=== PATIENT | male | born 1970 | race Caucasian/White ===

== ENCOUNTER 2016-03-21 07:12 | Emergency (ER) | payer OTHER, SELFPAY ==
[2016-03-21 07:25] LABS: #Neutrophils 4.5 thou/uL (1.40-6.50); %Basophils 0.7 % (0.0-1.0); %Eosinophils 1.4 % (0.0-10.0); %Lymphocytes 29.5 % (21.0-51.0); %Monocytes 9.9 % (0.0-10.0); %Neutrophils 58.5 % (42.0-75.0); Mean Corpuscular HGB CONC 34.7 g/dL (32.0-36.0); Mean Corpuscular Hemoglobin 32.1 pg (27.0-31.0); Mean Corpuscular Volume 92.4 fL (80.0-94.0); Mean Platelet Volume 9.1 fL (7.4-10.4); Platelet Count 235 thou/uL (130-400); RBC Distribution Width 11.3 % (11.5-14.5); Red Blood Cell (RBC) Count 4.98 mill/uL (4.70-6.10); White Blood Cell (WBC) Count 7.8 thou/uL (4.8-10.8)
[2016-03-21 07:26] LABS: #Basophils 0.1 thou/uL (0.0-0.2); #Eosinphils 0.1 thou/uL (0.0-0.7); #Lymphocytes 2.3 thou/uL (1.20-3.40); #Monocytes 0.8 thou/uL (0.11-0.59)
[2016-03-21 07:30] LABS: INR-International Normal Ratio 0.9; PTT 28.2 SEC (22.9-36.1); Prothrombin Time 12.9 SEC (12.0-14.7)
[2016-03-21 07:40] LABS: Albumin 4.5 g/dL (3.5-5.0); Chloride 104 mmol/L (98-107)
[2016-03-21 07:41] LABS: CKMB 4.7 ng/mL (0-6.6); Troponin I Less than 0.010 ng/mL (< 0.028)
[2016-03-21 07:43] LABS: Calcium 9.6 mg/dL (7.8-10.44); Sodium 138 mmol/L (136-145)
[2016-03-21 07:44] LABS: Anion Gap 18 mmol/L (10-20); Carbon Dioxide 21 mmol/L (22-29); Globulin 2.5 g/dL (2.4-3.5); Glucose 94 mg/dL (70-105); Potassium 4.5 mmol/L (3.5-5.1)
[2016-03-21 07:45] LABS: Calc. Creatinine Clearance 0 mL/min (70-130); Estimated GFR-MDRD 75
[2016-03-21 07:46] LABS: Alkaline Phosphatase 65 U/L (40-150); Bilirubin, Total 0.5 mg/dL (0.2-1.2)
[2016-03-21 07:47] LABS: AST (SGOT) 28 U/L (5-34); BUN (Urea Nitrogen) 24 mg/dL (8.9-20.6)
[2016-03-21 07:48] LABS: ALT (SGPT) 26 U/L (0-55)
--- NOTE | 2016-03-21 08:03 | CT ---
CT HEAD NONCONTRAST: History: Altered mental status. FINDINGS: No comparison. There is no evidence of acute intracranial hemorrhage or infarcts . The ventricles a ppear normal in size, shape, and position. There is no mass effect or shift of midline structures. IMPRESSION: No acute intracranial abnormalities are demonstrated on noncontrast CT head. POS: [facility]
--- NOTE | 2016-03-21 08:15 | ERRECORD ---
[facility] EMERGENCY RECORD HPI CVA (07:44 BPIC) CHIEF COMPLAINT: Patient presents for evaluation of motor deficits, slurred speech, left arm weakness, Patient presents for the evaluation of Cerebellar Symptoms, ataxia, left arm difficulty. HISTORIAN: History provided by patient, pt awoke at 0600 and went to the restroom. he had a hard time with his left arm shaking while using the restroom. he then noticed that he had difficulty speaking and "his eyes crossed" and called a neighbor to bring him to the hospital. while driving to the hospital his speech was fine, but he started slurring again in the ER and had shaking of the left arm again. Per neighbors, his speech is different currently. Never had symptoms like this in the past. Fam hx of cardiac and stroke events. pmh of appendectomy. no meds, no drugs or alcohol. NIHSS: CVA assessment findings: Level of consciousness: alert, keenly responsive (0), Questions: answers both questions correctly (0), Commands: performs both tasks correctly (0), Best gaze: normal (0), Visual: no visual loss (0), Facial palsy: normal symmetrical movement (0), Motor Left Arm: drift, arm drifts down but does not hit bed or other support (1), Motor Right Arm: no drift, arm stays 90/45 degrees for full 10 seconds (0), Motor left leg: no drift, leg stays at 30 degrees for full five seconds (0), Motor right leg: no drift, leg stays at 30 degrees for full five seconds (0), Limb ataxia: present in one limb (1), Sensory: mild to moderate sensory loss; patient feels pinprick is less sharp or is dull on the affected side; or there is a loss of superficial pain with pinprick, but patient is aware he/she is being touched (1), Best language: mild to moderate aphasia; some obvious loss of fluency or facility of comprehension without significant limitation on ideas expressed or form of expression. Reduction of speech and/or comprehension, however, makes conversation about provided material difficult or impossible (1), Dysarthria: severe: patient's speech is so slurred as to be unintelligible in the absence of or out of proportion to any dysphasia, or is mute/anarthric (2), Extinction and Inattention: normal (0), Total score 6. ROS (07:54 BPIC) CONSTITUTIONAL: Negative constitutional review of systems, Historian denies chills, denies fever. EYES: Negative eye review of systems. ENT: Negative ears, nose, throat review of systems. CARDIOVASCULAR: Negative cardiovascular review of systems, Historian denies chest pain, denies palpitations. RESPIRATORY: Negative respiratory review of systems, Historian denies cough, denies shortness of breath. GI: Negative gastrointestinal review of systems, Historian denies abdominal pain, denies constipation, denies diarrhea. MUSCULOSKELETAL: Negative musculoskeletal review of systems. SKIN: Negative skin review of systems. NEUROLOGIC: see hpi. ENDOCRINE: Negative endocrine review of systems. &a-1R&a+25V*p+0X*[id number]*c152B*c15G*c2P*p-0X&a-25V&a+1R Name: Reji Sahni : 02/1971 M45 MedRec: [id number] AcctNum: [id number] Prepared: SatMar 21, 2016 13:46 by Interface Page 1 of [address] [facility] EMERGENCY RECORD HEMO/LYMPHATIC: Normal hematologic/lymphatic system review. PSYCHIATRIC: Negative psychiatric review of systems. NOTES: All other ROS is negative except as listed in HPI. PAST MEDICAL HISTORY MEDICAL HISTORY: Flu vaccine not up to date, Tetanus not up to date, Pneumococcal vaccine not up to date, No past medical history. Reviewed 08/09/15. (07:14 LWAL) MALE SURGICAL HISTORY: Surgical history of appendectomy, Date of surgery 08/2015, Patient has no surgical history. Reviewed 08/09/15. (07:14 LWAL) SOCIAL HISTORY: Patient denies alcohol use, Patient denies drug use, Patient currently uses tobacco, smokes cigarettes, daily. Reviewed 08/09/15. (07:14 LWAL) NOTES: I have reviewed and agree with the PMH/PSxH/FamHx/SocHx obtained by the nurse. (07:54 BPIC) KNOWN ALLERGIES benadryl diphenhydramine (Unconfirmed) CURRENT MEDICATIONS (07:13 LWAL) None VITAL SIGNS VITAL SIGNS: BP: 145/94, Pulse: 70, Resp: 18, Temp: 98.2 (Tympanic), Pain: 0, O2 sat: 100 on Room Air, Time: 03/21/2016 07:13. (07:13 LWAL) BP: 127/70, Pulse: 69, Resp: 20, Temp: 98.1 (Tympanic), Pain: 0, O2 sat: 97 on Room Air, Time: 03/21/2016 07:55. (07:55 SCHI) PHYSICAL EXAM (07:54 BPIC) CONSTITUTIONAL: Vital signs reviewed, Patient appears non toxic, Patient alert and oriented to person, place and time, Pt is in no apparent distress. HEAD: Head exam included findings of head atraumatic, normocephalic. EYES: Eye exam included findings of eyelids normal to inspection, Pupils equally round and reactive to light, Extraocular muscles intact. ENT: ENT exam normal, Nose exam normal, no nasal deformity, no bleeding from nares, Pharynx exam normal, Mouth exam normal, mucous membranes moist. NECK: Neck exam included findings of normal range of motion, Trachea midline. RESPIRATORY CHEST: Respiratory and chest exam normal, Breath sounds clear, No wheezing, No rales, Chest exam included findings of chest movement symmetrical, Chest expansion equal. CARDIOVASCULAR: Cardiovascular assessment normal, Cardiovascular exam included findings of heart rate regular rate and rhythm, Heart &a-1R&a+25V*p+0X*[id number]*c152B*c15G*c2P*p-0X&a-25V&a+1R Name: Reji Sahni : 02/1971 M45 MedRec: [id number] AcctNum: [id number] Prepared: SatMar 21, 2016 13:46 by Interface Page 2 of [address] [facility] EMERGENCY RECORD sounds normal. ABDOMEN MALE: Abdominal exam included findings of abdomen nontender, Bowel sounds normal, no mass, no pulsatile masses, no peritoneal signs, no rigidity, no guarding, no rebound. BACK: Back exam included findings of normal inspection, range of motion normal, no costovertebral angle tenderness. UPPER EXTREMITY: Upper extremity exam included findings of inspection normal, Range of motion normal. LOWER EXTREMITY: Lower extremity exam included findings of inspection normal, Range of motion normal. NEURO: Neuro exam findings include patient oriented to person, place and time, Speech, slurred, Gait normal, [place] coma scale 15, Cranial nerves intact, no focal motor deficits, Focal sensory deficits include, sensory deficits to the left face, sensory deficits to the left arm, Cerebellar deficits include, Finger to nose normal, Heel to [place] normal, Rapid alternating movements normal, pt has intermittent tremor of left arm. SKIN: Skin exam included findings of skin warm, dry, and normal in color. LYMPHATIC: Lymphatic exam normal. PSYCHIATRIC: Psychiatric exam included findings of patient oriented to person place and time, Normal affect. EKG INTERPRETATION (07:39 BPIC) 12 LEAD EKG INTERPRETATION: 12 lead EKG interpreted by Emergency Department Physician at time of study, 12 lead EKG shows normal sinus rhythm, Rate (beats per minute): 63, with no ectopics, Conduction normal, ST segments normal, T waves normal, [place] normal, Clinical impression: Normal EKG. MEDICATION ADMINISTRATION SUMMARY Drug Name: aspirin oral, Dose Ordered: 324 mg, Route: Oral, Status: Given, Time: 07:30 03/21/2016, Detailed record available in Medication Service section. DOCTOR NOTES (07:56 BPIC) TEXT: Slurred speech, left sided facial numbness and left arm tremor: all of which are intermittent. He has had periods of normal movement and strength of the left arm. His speech has been slightly slurred, but it will worsen and then improve quickly. When symptoms at their worst, NIH 6 Aspirin given after negative CT scan. TPA not given because of possible left arm focal seizure at onset and waxing and waning of symptoms. Diagnosis and plan have been discussed with the patient. The patient understands the treatment plan and all questions have been answered. A transfer will be done to a facility that has a higher level of care and additional digital marketing consultant capabilities. &a-1R&a+25V*p+0X*q9482V*c152B*c15G*c2P*p-0X&a-25V&a+1R Name: Reji Sahni : 02/1971 M45 MedRec: [id number] AcctNum: [id number] Prepared: SatMar 21, 2016 13:46 by Interface Page 3 of [address] [facility] EMERGENCY RECORD PROBLEM LIST No recorded problems DIAGNOSIS (08:06 BPIC) FINAL: PRIMARY: Slurred speech, ADDITIONAL: left arm tremor, rule out stroke. PRESCRIPTION No recorded prescriptions DISPOSITION PATIENT: Disposition Type: Transfer, Disposition: Transfer to [facility], Condition: Guarded. (08:06 BPIC) Patient left the department. (08:10 PATRICIA) Ivan: TRAN=MD Adan, Candido BARBA=CARLOS Gomez, Isela GOMEZ=CARLOS Salomon, [place] &a-1R&a+25V*p+0X*[id number]*c152B*c15G*c2P*p-0X&a-25V&a+1R Name: Reji Sahni : 02/1971 M45 MedRec: [id number] AcctNum: [id number] Prepared: SatMar 21, 2016 13:46 by Interface Page 4 of 4 pMD MTDD
--- NOTE | 2016-03-21 08:20 | PICIS ---
[facility] EMERGENCY RECORD COMMUNICATIONS (07:41 SCHI) COMMUNICATIONS: Notes: JOSELINESTAT ACCEPTING, BHAVIK MOODY. TRIAGE (SatMar 21, 2016 07:13 LWAL) TRIAGE NOTES: poss stroke. (SatMar 21, 2016 07:13 LWAL) PATIENT: NAME: Reji Sahni, AGE: 45, GENDER: male, : Sat1970, TIME OF GREET: SatMar 21, 2016 07:12, PREFERRED LANGUAGE: Persian, ETHNICITY: Not or , ECODE BILLING MAP: [facility], SSN: [id number], Zip Code: [address], KG WEIGHT: 90.72, PHONE: , , , PERSON ID: [id number]. (SatMar 21, 2016 07:13 LWAL) COMPLAINT: STROKE. (SatMar 21, 2016 07:13 LWAL) ADMISSION: URGENCY: 2 Emergent, ADMISSION SOURCE: Home, TRANSPORT: CAR, BED: ED -01. (SatMar 21, 2016 07:13 LWAL) ASSESSMENT: Assessment: slurred speech, left arm shaking uncontrollably, Symptoms began 0615. (07:14 LWAL) SIRS SCORING: Heart Rate 55-109 (0), Temp range 96.8-101.1 (0), respiratory rate 12-24 (0), Mental Status altered: no (0), Total SIRS Score 0, Yes, Infection or Suspected Infection. (07:17 LWAL) TRIAGE SCREENING: Patient denies suicidal ideation, Patient denies presence of domestic violence. (07:17 LWAL) PROVIDERS: TRIAGE NURSE: Isela Gomez RN. (SatMar 21, 2016 07:13 LWAL) VITAL SIGNS: BP 145/94, Pulse 70, Resp 18, Temp 98.2, (Tympanic), Pain 0, O2 Sat 100, on Room Air, Time 03/21/2016 07:13. (07:13 LWAL) ACTIVATE PROTOCOL: Stroke protocol activated from Ambulance call. (07:14 LWAL) PREVIOUS VISIT ALLERGIES: benadryl. (SatMar 21, 2016 07:13 LWAL) benadryl. (07:14 LWAL) KNOWN ALLERGIES benadryl diphenhydramine (Unconfirmed) CURRENT MEDICATIONS (07:13 LWAL) None VITAL SIGNS VITAL SIGNS: BP: 145/94, Pulse: 70, Resp: 18, Temp: 98.2 (Tympanic), Pain: 0, O2 sat: 100 on Room Air, Time: 03/21/2016 07:13. (07:13 LWAL) BP: 127/70, Pulse: 69, Resp: 20, Temp: 98.1 (Tympanic), Pain: 0, O2 sat: 97 on Room Air, Time: 03/21/2016 07:55. (07:55 SCHI) NURSING ASSESSMENT: CVA ASSESSMENT TOOL CONSTITUTIONAL: Patient arrives, via hospital wheelchair, Unsteady gait, Assistance to cart, History obtained from patient, Patient appears, anxious, Patient &a-1R&a+25V*p+0X*u8141P*c152B*c15G*c2P*p-0X&a-25V&a+1R Name: Reji Sahni : 02/1971 M45 MedRec: [id number] AcctNum: [id number] Prepared: SatMar 21, 2016 13:52 by Interface Page 1 of 14 pMD [facility] EMERGENCY RECORD cooperative, Patient alert, Oriented to person, place and time, Skin warm, Skin dry, Skin normal in color, Mucous membranes pink, Mucous membranes moist, Patient is well-groomed, Patient complains of SLURRED SPEECH AND LEFT ARM SHAKING, WAS NORMAL AT 0600 SYMPTOMS STARTED AT 0615. (07:13 SCHI) PAIN: Patient rates pain as 0 out of 10. (07:13 SCHI) CVA ASSESSMENT: CVA assessment findings include sudden onset of symptoms, Pupils equally round and reactive to light, Left pupil 3 mm in size, Right pupil 3 mm in size, Speech, slurred, slow, Hand grasps unequal, right greater than left, Foot press equal, Upper extremity motor strength strong, Lower extremity motor strength strong, Numbness, to the left side of the face, no facial droop, Seth coma scale:, Eye opening: (4) - Spontaneous, Verbal: (5) - Oriented/conversive, Motor: (6) - Obeys commands/Spontaneous, GCS Total: 15, Associated with visual changes, in the left eye, described as blurred vision, Notes: SYMPTOMS COME AND GO NOT STAYING CONSISTENT. (07:13 SCHI) NIHSS: CVA assessment findings: Level of consciousness: alert, keenly responsive (0), Questions: answers both questions correctly (0), Commands: performs both tasks correctly (0), Best gaze: normal (0), Visual: no visual loss (0), Facial palsy: normal symmetrical movement (0), Motor Left Arm: drift, arm drifts down but does not hit bed or other support (1), Motor Right Arm: no drift, arm stays 90/45 degrees for full 10 seconds (0), Motor left leg: no drift, leg stays at 30 degrees for full five seconds (0), Motor right leg: no drift, leg stays at 30 degrees for full five seconds (0), Limb ataxia: present in one limb (1), Sensory: mild to moderate sensory loss; patient feels pinprick is less sharp or is dull on the affected side; or there is a loss of superficial pain with pinprick, but patient is aware he/she is being touched (1), Best language: mild to moderate aphasia; some obvious loss of fluency or facility of comprehension without significant limitation on ideas expressed or form of expression. Reduction of speech and/or comprehension, however, makes conversation about provided material difficult or impossible (1), Dysarthria: mild to moderate: patient slurs at least some words and, at worst, can be understood with some difficulty (1), Extinction and Inattention: normal (0), Total score 5. (07:13 [facility]) CVA assessment findings: Level of consciousness: alert, keenly responsive (0), Questions: answers both questions correctly (0), Commands: performs both tasks correctly (0), Best gaze: normal (0), Visual: no visual loss (0), Facial palsy: normal symmetrical movement (0), Motor Left Arm: drift, arm drifts down but does not hit bed or other support (1), Motor Right Arm: no drift, arm stays 90/45 degrees for full 10 seconds (0), Motor left leg: no drift, leg stays at 30 degrees for full five seconds (0), Motor right leg: no drift, leg stays at 30 degrees for full five seconds (0), Limb ataxia: present in one limb (1), Sensory: mild to moderate sensory loss; patient feels pinprick is less sharp or is dull on the affected &a-1R&a+25V*p+0X*b4222N*c152B*c15G*c2P*p-0X&a-25V&a+1R Name: Reji Sahni : 02/1971 M45 MedRec: [id number] AcctNum: [id number] Prepared: SatMar 21, 2016 13:52 by Interface Page 2 of 14 pMD [facility] EMERGENCY RECORD side; or there is a loss of superficial pain with pinprick, but patient is aware he/she is being touched (1), Best language: no aphasia; normal (0), Dysarthria: severe: patient's speech is so slurred as to be unintelligible in the absence of or out of proportion to any dysphasia, or is mute/anarthric (2), Extinction and Inattention: normal (0), Total score 5. (07:34 SCHI) CVA assessment findings: Level of consciousness: alert, keenly responsive (0), Questions: answers both questions correctly (0), Commands: performs both tasks correctly (0), Best gaze: normal (0), Visual: no visual loss (0), Facial palsy: normal symmetrical movement (0), Motor Left Arm: no drift, arm stays 90/45 degrees for full 10 seconds (0), Motor Right Arm: no drift, arm stays 90/45 degrees for full 10 seconds (0), Motor left leg: no drift, leg stays at 30 degrees for full five seconds (0), Motor right leg: no drift, leg stays at 30 degrees for full five seconds (0), Limb ataxia absent (0), Sensory: normal, no sensory loss (0), Best language: no aphasia; normal (0), Dysarthria: mild to moderate: patient slurs at least some words and, at worst, can be understood with some difficulty (1), Extinction and Inattention: normal (0), Total score 1. (07:36 SCHI) ACUTE STROKE PROTOCOL: Onset of symptoms Less than three hours:, NIHSS score 5, Inclusion criteria: Patient's age 18 years or older, Time of symptom onset (when patient was last seen normal) well established as less than 180 minutes (3hours) before treatment would begin, Rapidly resolving symptoms. (07:13 SCHI) SWALLOWING EVALUATION: Dysphagia Assessment findings: does not need frequent suctioning, can manage own secretions, no dense facial weakness, no decreased level of alertness, does not require oxygen by mask, able to maintain oxygen saturation at or above 90%, no history of aspiration pneumonia, no prior culver with residual effects, Patient clear for swallowing evaluation; no positive responses, Swallowing evaluation approved by Dr. ZHANG, Following administration of 3 ounces of water by a cup, patient exhibited no signs or symptoms of aspiration, passed evaluation. (07:13 SCHI) NOTES: Patient tolerated procedure well. (07:13 SCHI) NURSING PROCEDURE: BEDSIDE RADIOLOGY (07:35 LWAL) PATIENT IDENTIFIER: Patient actively involved in identification process, Patient's identity verified by patient stating name, Patient's identity verified by hospital ID bracelet. BEDSIDE RADIOLOGY: Bedside radiology indicated for POSS STROKE, Bedside radiology performed by RAKESH, Portable chest x-ray performed. NOTES: Patient tolerated procedure well. SAFETY: Side rails up, Cart/Stretcher in lowest position, Call light within reach, Hospital ID band on, Friend(s) at bedside. NURSING PROCEDURE: BEDSIDE TESTING (07:32 LWAL) PATIENT IDENTIFIER: Patient actively involved in identification process, Patient's identity verified by patient stating name, Patient's identity verified by hospital ID bracelet. &a-1R&a+25V*p+0X*v6001W*c152B*c15G*c2P*p-0X&a-25V&a+1R Name: Reji Sahni : 02/1971 M45 MedRec: [id number] AcctNum: [id number] Prepared: SatMar 21, 2016 13:52 by Interface Page 3 of 14 pMD [facility] EMERGENCY RECORD GLUCOSE: Glucose testing indicated for mental status changes, Capillary blood sample, Result (mg/dl) 89, Machine number ER. FOLLOW-UP: After procedure, results given to Dr. ZHANG. NURSING PROCEDURE: MENAGERIE SUPERINTENDENT PATIENT IDENTIFIER: Patient actively involved in identification process, Patient's identity verified by patient stating name, Patient's identity verified by hospital ID bracelet. (07:14 LWAL) MENAGERIE SUPERINTENDENT: Patient placed on stock receiver, Patient placed on non-invasive blood pressure monitor, Patient placed on continuous pulse oximetry, Adult/pediatric oxisensor applied. (07:13 SCHI) Cardiac monitoring indicated for mental status changes, Patient placed on stock receiver, Patient placed on non-invasive blood pressure monitor, Patient placed on continuous pulse oximetry. (07:14 LWAL) NOTES: Patient tolerated procedure well. (07:14 LWAL) SAFETY: Side rails up, Cart/Stretcher in lowest position, Hospital ID band on, Friend(s) at bedside. (07:14 LWAL) NURSING PROCEDURE: EKG CHART (07:37 LWAL) PATIENT IDENTIFIER: Patient actively involved in identification process, Patient's identity verified by patient stating name, Patient's identity verified by hospital ID bracelet. EKG: EKG indicated for STROKE PROTOCOL, 12 lead EKG performed on the left chest, done by JOSEPH GONZALEZ, first EKG. FOLLOW-UP: After procedure, EKG for interpretation given to Dr. ZHANG. NOTES: Patient tolerated procedure well. SAFETY: Side rails up, Cart/Stretcher in lowest position, Call light within reach, Hospital ID band on. NURSING PROCEDURE: IV PATIENT IDENITIFIER: Patient actively involved in identification process, Patient's identity verified by patient stating name, Patient's identity verified by hospital ID bracelet. (07:15 LWAL) IV SITE 1: IV therapy indicated for hydration, IV therapy indicated for medication administration, IV established, to the left antecubital, using a 20 gauge catheter, in one attempt, IV site prepped with ALCOHOL PREP, Saline lock established, Flushed with normal saline (mls): 10 ML, Labs drawn at time of placement, labeled in the presence of the patient and sent to lab, Notes: MARTÍNEZ AT BEDSIDE FOR CODE STROKE. (07:15 LWAL) FOLLOW-UP SITE 1: Notes: NO S/S INFECTION, SWELLING, BLEEDING, CONTINUED FOR TRANSFER. (07:56 SCHI) NOTES: Patient tolerated procedure well. (07:15 LWAL) SAFETY: Side rails up, Cart/Stretcher in lowest position, Call light within reach, Hospital ID band on, Friend(s) at bedside. (07:15 LWAL) NURSING PROCEDURE: NEURO CHECK (07:45 SCHI) GCS/NEURO/PUPILS: [place] Coma Scale:, Eye opening: (4) - &a-1R&a+25V*p+0X*q6614L*c152B*c15G*c2P*p-0X&a-25V&a+1R Name: Reji Sahni : 02/1971 M45 MedRec: [id number] AcctNum: [id number] Prepared: SatMar 21, 2016 13:52 by Interface Page 4 of 14 pMD [facility] EMERGENCY RECORD Spontaneous, Verbal: (5) - Oriented/conversive, Motor: (6) - Obeys commands/Spontaneous, GCS Total: 15, Neuro check findings include movement normal to all extremities, Pupils equally round and reactive to light, Left pupil 3 mm in size, Right pupil 3 mm in size. NOTES: Emotional support needed and given, Patient tolerated procedure well. SAFTEY: Side rails up, Cart/Stretcher in lowest position, Family at bedside, Hospital ID band on. NURSING PROCEDURE: NURSE NOTES NURSES NOTES: Notes: all times are approximate due to care being provided, then documented. (07:13 SCHI) Notes: PT STOOD UP NEXT TO THE BED AND ATTEMPTED TO URINATE IN URINAL BUT COULDN'T, NO SYMPTOMS TILL HE GOT BACK ON STRETCHER THEN HAS DIFFICULTY WITH SPEECH AND BOTH ARMS THIS TIME LASTING ONLY SECONDS THEN RESOLVING, HE BECOMES VERY ANXIOUS AT THESE TIMES. (07:40 SCHI) NURSING PROCEDURE: TRANSFER (07:56 SCHI) TRANSFER: Reason for transfer need for specialized care, Diagnosis: SLURRED SPEECE, R/O CVA, Accepting institution[facility] ER, Referring physician: ADAN, Transported by urgent ambulance, accompanied by emergency medical services personnel, Report called to receiving facility, TED @ [phone], Provided opportunity to answer questions, Bed assigned ER. BELONGINGS: Belongings remain with patient. EQUIPMENT WITH PATIENT: Equipment with patient at time of transfer stock receiver, Saline lock intact and patent at time of transfer. NOTES: Patient tolerated procedure well. NURSING PROCEDURE: TRANSPORT TO TESTS PATIENT IDENTIFIER: Patient actively involved in identification process, Patient's identity verified by patient stating name, Patient's identity verified by hospital ID brajohanet. (07:18 LWAL) TRANSPORT TO TESTS: Transport indicated for POSS STROKE, Patient transported to CT scan, via cart, Accompanied by x-ray maintenance shop technician, Accompanied by nurse. (07:18 LWAL) FOLLOW-UP: After procedure, patient returned to emergency department. (07:27 LWAL) ORDER DETAILS Order Name: BLOOD GLUCOSE MONITOR, Status: Done, Time: 07:54 03/21/2016, User: JMAESON, - Ordered for: MD Zhang Bryan, - Entered by: MD Zhang Bryan - SatMar 21, 2016 07:19, - Quantity: 1, Order Name: Cardiac Profile w/CKMB & Troponin - I, Status: Active, Time: 07:19 03/21/2016, User: TRAN, - Ordered for: MD Zhang Bryan, &a-1R&a+25V*p+0X*g4019P*c152B*c15G*c2P*p-0X&a-25V&a+1R Name: Reji Sahni : 02/1971 M45 MedRec: [id number] AcctNum: [id number] Prepared: SatMar 21, 2016 13:52 by Interface Page 5 of 14 D [facility] EMERGENCY RECORD - Entered by: MD Zhang Bryan - SatMar 21, 2016 07:19, - Quantity: 1, Order Name: CBC with Differential, Status: Active, Time: 07:19 03/21/2016, User: TRAN, - Ordered for: MD Zhang Bryan, - Entered by: MD Zhang Bryan - SatMar 21, 2016 07:19, - Quantity: 1, Order Name: Comprehensive Metabolic Panel, Status: Active, Time: 07:19 03/21/2016, User: BPROSE, - Ordered for: MD Zhang Bryan, - Entered by: MD Zhang Bryan - SatMar 21, 2016 07:19, - Quantity: 1, Order Name: CT Brain WO Con, Status: Done, Time: 09:20 03/21/2016, User: System, - Ordered for: MD Zhang Bryan, - Entered by: MD Zhang Bryan - SatMar 21, 2016 07:15, - Quantity: 1, Order Name: DYSPHAGIA SCREEN, Status: Done, Time: 07:54 03/21/2016, User: LWCHELY, - Ordered for: MD Zhang Bryan, - Entered by: MD Zhang Bryan [facility] Mar 21, 2016 07:19, - Quantity: 1, Order Name: EKG 12 Lead in Emergency Room, Status: Active, Time: 07:19 03/21/2016, User: BPIC, - Ordered for: MD Zhang Bryan, - Entered by: MD Zhang Bryan [facility] Mar 21, 2016 07:19, - Quantity: 1, Order Name: NIHSS, Status: Done, Time: 07:23 03/21/2016, User: SCHI, - Ordered for: MD Zhang Bryan, - Entered by: MD Zhang Bryan - [facility] Mar 21, 2016 07:19, - Quantity: 1, Order Name: Protime with INR, Status: Active, Time: 07:19 03/21/2016, User: BPIC, - Ordered for: MD Zhang Bryan, - Entered by: MD Zhang Bryan - [facility] Mar 21, 2016 07:19, - Quantity: 1, Order Name: PTT, Status: Active, Time: 07:19 03/21/2016, User: BPIC, - Ordered for: MD Zhang Bryan, - Entered by: MD Zhang Bryan - [facility] Mar 21, 2016 07:19, - Quantity: 1, Order Name: SALINE LOCK, Status: Done, Time: 07:23 03/21/2016, User: SCHI, - Ordered for: MD Zhang Bryan, - Entered by: MD Zhang Bryan [facility] Mar 21, 2016 07:19, - Quantity: 1, Order Name: Urinalysis w/ Rflx Microscopic, Status: Active, Time: 07:19 03/21/2016, User: BPIC, - Ordered for: MD Zhang Bryan, - Entered by: MD Zhang Bryan [facility] Mar 21, 2016 07:19, - Quantity: 1, Order Name: XR Chest 1 View Portable, Status: Done, Time: 10:30 &a-1R&a+25V*p+0X*p3903V*c152B*c15G*c2P*p-0X&a-25V&a+1R Name: Reji Sahni : 02/1971 M45 MedRec: [id number] AcctNum: [id number] Prepared: SatMar 21, 2016 13:52 by Interface Page 6 of 14 pMD [facility] EMERGENCY RECORD 03/21/2016, User: System, - Ordered for: MD Zhang Bryan, - Entered by: MD Zhang Bryan - SatMar 21, 2016 07:15, - Quantity: 1. MEDICATION ADMINISTRATION SUMMARY Drug Name: aspirin oral, Dose Ordered: 324 mg, Route: Oral, Status: Given, Time: 07:30 03/21/2016, Detailed record available in Medication Service section. MEDICATION SERVICE (07:30 BPIC) aspirin oral: Order: aspirin oral (aspirin) - Dose: 324 mg : Oral Ordered by: Candido Zhang MD Entered by: Candido Zhang MD SatMar 21, 2016 07:38 Documented as given by: Isela Gomez RN SatMar 21, 2016 07:30 Patient, Medication, Dose, Route and Time verified prior to administration. Amount given: 324 MG, Site: Medication administered P.O., Correct patient, time, route, dose and medication confirmed prior to administration, Patient advised of actions and side-effects prior to administration, Allergies confirmed and medications reviewed prior to administration, Patient in position of comfort, Side rails up, Cart in lowest position, Friend at bedside. HPI CVA (07:44 BP) CHIEF COMPLAINT: Patient presents for evaluation of motor deficits, slurred speech, left arm weakness, Patient presents for the evaluation of Cerebellar Symptoms, ataxia, left arm difficulty. HISTORIAN: History provided by patient, pt awoke at 0600 and went to the restroom. he had a hard time with his left arm shaking while using the restroom. he then noticed that he had difficulty speaking and "his eyes crossed" and called a neighbor to bring him to the hospital. while driving to the hospital his speech was fine, but he started slurring again in the ER and had shaking of the left arm again. Per neighbors, his speech is different currently. Never had symptoms like this in the past. Fam hx of cardiac and stroke events. pmh of appendectomy. no meds, no drugs or alcohol. NIHSS: CVA assessment findings: Level of consciousness: alert, keenly responsive (0), Questions: answers both questions correctly (0), Commands: performs both tasks correctly (0), Best gaze: normal (0), Visual: no visual loss (0), Facial palsy: normal symmetrical movement (0), Motor Left Arm: drift, arm drifts down but does not hit bed or other support (1), Motor Right Arm: no drift, arm stays 90/45 degrees for full 10 seconds (0), Motor left leg: no drift, leg stays at 30 degrees for full five seconds (0), Motor right leg: no drift, leg stays at 30 degrees for full five seconds (0), Limb ataxia: present in one limb (1), Sensory: mild to moderate sensory loss; patient feels pinprick is less sharp or is &a-1R&a+25V*p+0X*o0849R*c152B*c15G*c2P*p-0X&a-25V&a+1R Name: Reji Sahni : 02/1971 M45 MedRec: [id number] AcctNum: [id number] Prepared: SatMar 21, 2016 13:52 by Interface Page 7 of 14 pMD [facility] EMERGENCY RECORD dull on the affected side; or there is a loss of superficial pain with pinprick, but patient is aware he/she is being touched (1), Best language: mild to moderate aphasia; some obvious loss of fluency or facility of comprehension without significant limitation on ideas expressed or form of expression. Reduction of speech and/or comprehension, however, makes conversation about provided material difficult or impossible (1), Dysarthria: severe: patient's speech is so slurred as to be unintelligible in the absence of or out of proportion to any dysphasia, or is mute/anarthric (2), Extinction and Inattention: normal (0), Total score 6. ROS (07:54 BPIC) CONSTITUTIONAL: Negative constitutional review of systems, Historian denies chills, denies fever. EYES: Negative eye review of systems. ENT: Negative ears, nose, throat review of systems. CARDIOVASCULAR: Negative cardiovascular review of systems, Historian denies chest pain, denies palpitations. RESPIRATORY: Negative respiratory review of systems, Historian denies cough, denies shortness of breath. GI: Negative gastrointestinal review of systems, Historian denies abdominal pain, denies constipation, denies diarrhea. MUSCULOSKELETAL: Negative musculoskeletal review of systems. SKIN: Negative skin review of systems. NEUROLOGIC: see hpi. ENDOCRINE: Negative endocrine review of systems. HEMO/LYMPHATIC: Normal hematologic/lymphatic system review. PSYCHIATRIC: Negative psychiatric review of systems. NOTES: All other ROS is negative except as listed in HPI. PAST MEDICAL HISTORY MEDICAL HISTORY: Flu vaccine not up to date, Tetanus not up to date, Pneumococcal vaccine not up to date, No past medical history. Reviewed 08/09/15. (07:14 LWAL) MALE SURGICAL HISTORY: Surgical history of appendectomy, Date of surgery 08/2015, Patient has no surgical history. Reviewed 08/09/15. (07:14 LWAL) SOCIAL HISTORY: Patient denies alcohol use, Patient denies drug use, Patient currently uses tobacco, smokes cigarettes, daily. Reviewed 08/09/15. (07:14 LWAL) NOTES: I have reviewed and agree with the PMH/PSxH/FamHx/SocHx obtained by the nurse. (07:54 BPIC) PHYSICAL EXAM (07:54 BPIC) CONSTITUTIONAL: Vital signs reviewed, Patient appears non toxic, Patient alert and oriented to person, place and time, Pt is in no apparent distress. HEAD: Head exam included findings of head atraumatic, normocephalic. EYES: Eye exam included findings of eyelids normal to inspection, &a-1R&a+25V*p+0X*d5887W*c152B*c15G*c2P*p-0X&a-25V&a+1R Name: Reji Shani : 02/1971 M45 MedRec: [id number] AcctNum: [id number] Prepared: SatMar 21, 2016 13:52 by Interface Page 8 of 14 pMD [facility] EMERGENCY RECORD Pupils equally round and reactive to light, Extraocular muscles intact. ENT: ENT exam normal, Nose exam normal, no nasal deformity, no bleeding from nares, Pharynx exam normal, Mouth exam normal, mucous membranes moist. NECK: Neck exam included findings of normal range of motion, Trachea midline. RESPIRATORY CHEST: Respiratory and chest exam normal, Breath sounds clear, No wheezing, No rales, Chest exam included findings of chest movement symmetrical, Chest expansion equal. CARDIOVASCULAR: Cardiovascular assessment normal, Cardiovascular exam included findings of heart rate regular rate and rhythm, Heart sounds normal. ABDOMEN MALE: Abdominal exam included findings of abdomen nontender, Bowel sounds normal, no mass, no pulsatile masses, no peritoneal signs, no rigidity, no guarding, no rebound. BACK: Back exam included findings of normal inspection, range of motion normal, no costovertebral angle tenderness. UPPER EXTREMITY: Upper extremity exam included findings of inspection normal, Range of motion normal. LOWER EXTREMITY: Lower extremity exam included findings of inspection normal, Range of motion normal. NEURO: Neuro exam findings include patient oriented to person, place and time, Speech, slurred, Gait normal, [place] coma scale 15, Cranial nerves intact, no focal motor deficits, Focal sensory deficits include, sensory deficits to the left face, sensory deficits to the left arm, Cerebellar deficits include, Finger to nose normal, Heel to churchill normal, Rapid alternating movements normal, pt has intermittent tremor of left arm. SKIN: Skin exam included findings of skin warm, dry, and normal in color. LYMPHATIC: Lymphatic exam normal. PSYCHIATRIC: Psychiatric exam included findings of patient oriented to person place and time, Normal affect. EVENTS TRANSFER: Triage to Emergency Main ED -01. (SatMar 21, 2016 07:13 LWAL) Removed from Emergency Main ED -01. (08:10 SCHI) EKG INTERPRETATION (07:39 BPIC) 12 LEAD EKG INTERPRETATION: 12 lead EKG interpreted by Emergency Department Physician at time of study, 12 lead EKG shows normal sinus rhythm, Rate (beats per minute): 63, with no ectopics, Conduction normal, ST segments normal, T waves normal, [place] normal, Clinical impression: Normal EKG. DOCTOR NOTES (07:56 BPIC) TEXT: Slurred speech, left sided facial numbness and left arm tremor: all of which are intermittent. He has had periods of &a-1R&a+25V*p+0X*w0097B*c152B*c15G*c2P*p-0X&a-25V&a+1R Name: Reji Sahni : 02/1971 M45 MedRec: [id number] AcctNum: [id number] Prepared: SatMar 21, 2016 13:52 by Interface Page 9 of 14 pMD [facility] EMERGENCY RECORD normal movement and strength of the left arm. His speech has been slightly slurred, but it will worsen and then improve quickly. When symptoms at their worst, NIH 6 Aspirin given after negative CT scan. TPA not given because of possible left arm focal seizure at onset and waxing and waning of symptoms. Diagnosis and plan have been discussed with the patient. The patient understands the treatment plan and all questions have been answered. A transfer will be done to a facility that has a higher level of care and additional crop consultant capabilities. PROBLEM LIST No recorded problems DIAGNOSIS (08:06 BPIC) FINAL: PRIMARY: Slurred speech, ADDITIONAL: left arm tremor, rule out stroke. DISPOSITION PATIENT: Disposition Type: Transfer, Disposition: Transfer to [facility], Condition: Guarded. (08:06 BPIC) Patient left the department. (08:10 SCHI) PRESCRIPTION No recorded prescriptions IMAGING *EKG: Image captured from scanner. (08:05 LWAL) *MEMORANDUM OF TRANSFER: Image captured from scanner. (08:08 LWAL) EMS TRANSPORT ORDERS: Image captured from scanner. (08:08 LWAL) TRANSFER QI WORKSHEET: Image captured from scanner. (08:09 LWAL) Page 2 added. Image captured from scanner. (08:09 LWAL) CONSENTS: Image captured from scanner. (08:10 LWAL) STROKE PACKET: Image captured from scanner. (08:10 LWAL) Page 2 added. Image captured from scanner. (08:11 LWAL) Page 3 added. Image captured from scanner. (08:11 LWAL) *SUPPLY CHARGE SHEET: Image captured from scanner. (08:11 LWAL) ADMIN DIGITAL SIGNATURE: CARLOS Salomon, [place]. (10:34 SCHI) MD Zhang Bryan. (13:39 BPIC) MD Zhang Bryan. (13:39 BPIC) RESULTS RADIOLOGY: CT Brain WO Con Observe DT: SatMar 21, 2016 07:15, BR CT HEAD NONCONTRAST: History: Altered mental status. &a-1R&a+25V*p+0X*c1196Q*c152B*c15G*c2P*p-0X&a-25V&a+1R Name: Reji Sahni : 02/1971 M45 MedRec: [id number] AcctNum: [id number] Prepared: SatMar 21, 2016 13:52 by Interface Page 10 of 14 pMD [facility] EMERGENCY RECORD FINDINGS: No comparison. There is no evidence of acute intracranial hemorrhage or infarcts . The ventricles a ppear normal in size, shape, and position. There is no mass effect or shift of midline structures. IMPRESSION: No acute intracranial abnormalities are demonstrated on noncontrast CT head. POS: [facility] . (09:41 KMED) XR Chest 1 View Portable Observe DT: SatMar 21, 2016 07:15, CXRP PORTABLE UPRIGHT FRONTAL CHEST RADIOGRAPH: Date: 03-21-16 Comparison: None. History: Slurred speech. Left sided weakness. Facial droop. FINDINGS: Heart and mediastinal contours within normal limits. Lungs are clear. IMPRESSION: No acute findings. POS: [facility] . (13:39 BPIC) LABORATORY: CBC with Differential Collection DT: SatMar 21, 2016 07:25, White Blood Cell (WBC) Count 7.8 thou/uL, Range (4.8-10.8), Red Blood Cell (RBC) Count 4.98 mill/uL, Range (4.70-6.10), Hemoglobin 16.0 g/dL, Range (14.0-18.0), Hematocrit 46.0 %, Range (42.0-52.0), Mean Corpuscular Volume 92.4 fL, Range (80.0-94.0), *Mean Corpuscular Hemoglobin 32.1 - H pg, Range (27.0-31.0), Mean Corpuscular HGB CONC 34.7 g/dL, Range (32.0-36.0), *RBC Distribution Width 11.3 - L %, Range (11.5-14.5), Platelet Count 235 thou/uL, Range (130-400), Mean Platelet Volume 9.1 fL, Range (7.4-10.4), %Neutrophils 58.5 %, Range (42.0-75.0), %Lymphocytes 29.5 %, Range (21.0-51.0), %Monocytes 9.9 %, Range (0.0-10.0), %Eosinophils 1.4 %, Range (0.0-10.0), %Basophils 0.7 %, Range (0.0-1.0), #Neutrophils 4.5 thou/uL, Range (1.40-6.50), #Lymphocytes 2.3 thou/uL, Range (1.20-3.40), *#Monocytes 0.8 - H thou/uL, Range (0.11-0.59), #Eosinphils 0.1 thou/uL, Range (0.0-0.7), &a-1R&a+25V*p+0X*c9115M*c152B*c15G*c2P*p-0X&a-25V&a+1R Name: Reji Sahni : 02/1971 M45 MedRec: [id number] AcctNum: [id number] Prepared: SatMar 21, 2016 13:52 by Interface Page 11 of 14 pMD [facility] EMERGENCY RECORD #Basophils 0.1 thou/uL, Range (0.0-0.2). (07:29 BPIC) PTT Collection DT: SatMar 21, 2016 07:30, See comment below , Anticoagulant? NONE Medical Necessity SUSPECT COAGULOPATHY , PTT 28.2 SEC, Range (22.9-36.1). (07:38 BPIC) Protime with INR Collection DT: SatMar 21, 2016 07:30, See comment below , Anticoagulant? NONE Medical Necessity SUSPECT COAGULOPATHY , Prothrombin Time 12.9 SEC, Range (12.0-14.7), INR-International Normal Ratio 0.9 , ATTENTION: READ CAREFULLY , The, recommended therapeutic ranges for oral anticoagulant treatments are: , , Low Intensity: 1.5 - 2.0 Moderate Intensity: 2.0, - 3.0 High Intensity (1): 2.5 - 3.5 High, Intensity (2): 3.0 - 4.0 CRITICAL: >, 4.0 . (07:38 BPIC) CBC with Differential Collection DT: SatMar 21, 2016 07:25, White Blood Cell (WBC) Count 7.8 thou/uL, Range (4.8-10.8), Red Blood Cell (RBC) Count 4.98 mill/uL, Range (4.70-6.10), Hemoglobin 16.0 g/dL, Range (14.0-18.0), Hematocrit 46.0 %, Range (42.0-52.0), Mean Corpuscular Volume 92.4 fL, Range (80.0-94.0), *Mean Corpuscular Hemoglobin 32.1 - H pg, Range (27.0-31.0), Mean Corpuscular HGB CONC 34.7 g/dL, Range (32.0-36.0), *RBC Distribution Width 11.3 - L %, Range (11.5-14.5), Platelet Count 235 thou/uL, Range (130-400), Mean Platelet Volume 9.1 fL, Range (7.4-10.4), %Neutrophils 58.5 %, Range (42.0-75.0), %Lymphocytes 29.5 %, Range (21.0-51.0), %Monocytes 9.9 %, Range (0.0-10.0), %Eosinophils 1.4 %, Range (0.0-10.0), %Basophils 0.7 %, Range (0.0-1.0), #Neutrophils 4.5 thou/uL, Range (1.40-6.50), #Lymphocytes 2.3 thou/uL, Range (1.20-3.40), *#Monocytes 0.8 - H thou/uL, Range (0.11-0.59), #Eosinphils 0.1 thou/uL, Range (0.0-0.7), #Basophils 0.1 thou/uL, Range (0.0-0.2). (07:38 BPIC) Cardiac Profile w/CKMB & TropI Collection DT: SatMar 21, 2016 07:24, CKMB 4.7 ng/mL, Range (0-6.6), Troponin I Less than 0.010 ng/mL, Range (< 0.028). (07:46 LWAL) Comprehensive Metabolic Panel Collection DT: SatMar 21, 2016 07:31, Sodium 138 mmol/L, Range (136-145), &a-1R&a+25V*p+0X*q2897G*c152B*c15G*c2P*p-0X&a-25V&a+1R Name: Reji Sahni : 02/1971 M45 MedRec: [id number] AcctNum: [id number] Prepared: SatMar 21, 2016 13:52 by Interface Page 12 of 14 pMD [facility] EMERGENCY RECORD Potassium 4.5 mmol/L, Range (3.5-5.1), Chloride 104 mmol/L, Range (98-107), *Carbon Dioxide 21 - L mmol/L, Range (22-29), Anion Gap 18 mmol/L, Range (10-20), *BUN (Urea Nitrogen) 24 - H mg/dL, Range (8.9-20.6), Creatinine 1.06 mg/dL, Range (0.7-1.3), Estimated GFR-MDRD 75 , Reference Range for Estimated GFR: Greater than 90, mL/min/1.73 m2 NOTE: The MDRD equation has not been validated for use, with the elderly (over 70 years of age), women, patients with, serious comorbid condition or persons with extremes of body size, muscle, mass, or nutritional status. , Glucose 94 mg/dL, Range (70-105), Calcium 9.6 mg/dL, Range (7.8-10.44), Bilirubin, Total 0.5 mg/dL, Range (0.2-1.2), Protein, Total 7.0 g/dL, Range (6.0-8.3), NOTE: Plasma values are generally 0.3 to 0.5 g/dL higher than serum values, due to the presence of fibrinogen. , Albumin 4.5 g/dL, Range (3.5-5.0), Globulin 2.5 g/dL, Range (2.4-3.5), Alb/Glob Ratio 1.8 g/dL, Range (1.2-2.2), Alkaline Phosphatase 65 U/L, Range (40-150), AST (SGOT) 28 U/L, Range (5-34), ALT (SGPT) 26 U/L, Range (0-55). (07:51 LWAL) Comprehensive Metabolic Panel Collection DT: SatMar 21, 2016 07:31, Sodium 138 mmol/L, Range (136-145), Potassium 4.5 mmol/L, Range (3.5-5.1), Chloride 104 mmol/L, Range (98-107), *Carbon Dioxide 21 - L mmol/L, Range (22-29), Anion Gap 18 mmol/L, Range (10-20), *BUN (Urea Nitrogen) 24 - H mg/dL, Range (8.9-20.6), Creatinine 1.06 mg/dL, Range (0.7-1.3), Estimated GFR-MDRD 75 , Reference Range for Estimated GFR: Greater than 90, mL/min/1.73 m2 NOTE: The MDRD equation has not been validated for use, with the elderly (over 70 years of age), women, patients with, serious comorbid condition or persons with extremes of body size, muscle, mass, or nutritional status. , Glucose 94 mg/dL, Range (70-105), Calcium 9.6 mg/dL, Range (7.8-10.44), Bilirubin, Total 0.5 mg/dL, Range (0.2-1.2), Protein, Total 7.0 g/dL, Range (6.0-8.3), NOTE: Plasma values are generally 0.3 to 0.5 g/dL higher than serum values, due to the presence of fibrinogen. , Albumin 4.5 g/dL, Range (3.5-5.0), Globulin 2.5 g/dL, Range (2.4-3.5), Alb/Glob Ratio 1.8 g/dL, Range (1.2-2.2), &a-1R&a+25V*p+0X*f3738W*c152B*c15G*c2P*p-0X&a-25V&a+1R Name: Reji Sahni : 02/1971 M45 MedRec: [id number] AcctNum: [id number] Prepared: SatMar 21, 2016 13:52 by Interface Page 13 of 14 pMD [facility] EMERGENCY RECORD Alkaline Phosphatase 65 U/L, Range (40-150), AST (SGOT) 28 U/L, Range (5-34), ALT (SGPT) 26 U/L, Range (0-55). (07:54 LWAL) [place] Collection DT: SatMar 21, 2016 08:08, [place] 89 mg/dL, Range (70-110). (09:41 KMED) Ivan: BPIC=MD Adan, Candido KMED=CARLOS Chua, Marleny LWAL=CARLOS Gomez, Isela GOMEZ=CARLOS Salomon, Slinda &a-1R&a+25V*p+0X*a6889S*c152B*c15G*c2P*p-0X&a-25V&a+1R Name: Reji Sahni : 02/1971 M45 MedRec: [id number] AcctNum: [id number] Prepared: SatMar 21, 2016 13:52 by Interface Page 14 of 14 pMD MTDD
== END 2016-03-21 07:56 | disposition short-term general hospital (02) ==
LOC: MADERS 07:12
DX: R47.81 Slurred speech (principal); R25.1 Tremor, unspecified; F17.210 Nicotine dependence, cigarettes, uncomplicated
CPT/HCPCS: 36416; 70450; 71010; 80053; 82553; 84484; 85025; 85610; 85730; 93005

== ENCOUNTER 2016-11-18 22:16 | Emergency (ER) | payer OTHER, SELFPAY ==
[~2016-11-18 22:16] MED LIST: Iopamidol 370 76% 100 ML VIAL ONE; Sodium Chloride 0.9% 1,000 ML BAG ONE
[2016-11-18] MEDS ORDERED: Ondansetron HCl/PF 4 MG/2 ML Vial ONE (22:43)
[2016-11-18 23:00] LABS: #Basophils 0.1 thou/uL (0.0-0.2); #Eosinphils 0.1 thou/uL (0.0-0.7); #Lymphocytes 2.7 thou/uL (1.20-3.40); #Monocytes 0.9 thou/uL (0.11-0.59); #Neutrophils 6.4 thou/uL (1.40-6.50); %Basophils 0.7 % (0.0-1.0); %Eosinophils 1.3 % (0.0-10.0); %Lymphocytes 26.7 % (21.0-51.0); %Monocytes 8.9 % (0.0-10.0); %Neutrophils 62.4 % (42.0-75.0); Hemoglobin 15.7 g/dL (14.0-18.0); Mean Corpuscular HGB CONC 33.3 g/dL (32.0-36.0); Mean Corpuscular Hemoglobin 31.5 pg (27.0-31.0); Mean Corpuscular Volume 94.6 fl (80.0-94.0); Mean Platelet Volume 6.1 fL (7.4-10.4); Platelet Count 208 thou/uL (130-400); RBC Distribution Width 11.5 % (11.5-14.5); White Blood Cell (WBC) Count 10.2 thou/uL (4.8-10.8)
[2016-11-18 23:15] LABS: Bacteria/HPF None Seen HPF (None Seen); Bilirubin Negative (Negative); Blood, Urine Trace (Negative); Clarity Clear (Clear); Glucose, Urine (Dipstick) Negative (Negative); Leukocyte Negative (Negative); Nitrite Negative (Negative); Protein, Urine (Dipstick) Negative (Neg-Trace); Squamous Epithelial None Seen HPF (0-3); Urobilinogen 0.2 mg/dL (0.2-1.0); WBC/HPF None Seen HPF (0-3)
[2016-11-18 23:16] LABS: Amphetamine Not Detected (NotDetected); Barbiturates Screen Not Detected (NotDetected); Benzodiazepine Screen Not Detected (NotDetected); Cocaine Metabolite Screen Not Detected (NotDetected); Medtox Control Line Valid? VALID (VALID); Methadone Not Detected (NotDetected); Methamphetamine Not Detected (NotDetected); Opiate Screen Not Detected (NotDetected); Oxycodone Screen Not Detected (NotDetected); Phencyclidine (PCP) Not Detected (NotDetected); THC/Cannabinoid Screen Not Detected (NotDetected); Tricyclic Screen Not Detected (NotDetected)
[2016-11-18 23:19] LABS: ALT (SGPT) 34 U/L (8-55); AST (SGOT) 23 U/L (5-34); Albumin 4.5 g/dL (3.5-5.0); Alkaline Phosphatase 64 U/L (40-150); Anion Gap 14 mmol/L (10-20); BUN (Urea Nitrogen) 27 mg/dL (8.9-20.6); Bilirubin, Total 0.4 mg/dL (0.2-1.2); Calc. Creatinine Clearance 0 mL/min (70-130); Calcium 10.2 mg/dL (7.8-10.44); Carbon Dioxide 27 mmol/L (22-29); Chloride 101 mmol/L (98-107); Estimated GFR-MDRD 72; Globulin 2.8 g/dL (2.4-3.5); Glucose 96 mg/dL (70-105); Protein, Total 7.3 g/dL (6.0-8.3); Sodium 138 mmol/L (136-145)
[2016-11-18 23:20] LABS: Lipase 11 U/L (8-78)
--- NOTE | 2016-11-18 23:31 | CT ---
CT OF ABDOMEN AND PELVIS: Date: 11-18-16 Comparison: 08-09-15 History: Abdominal pain. Technique: Serial axial CT imaging is obtained at 5 mm intervals from the lung bases through the pub ic symphysis with IV contrast. Coronal reformatted imaging obtained. FINDINGS: The lack of oral contrast limits assessment of the bowel. The imaged lung bases appear unremarkable. No free intraperitoneal air is seen. There is a large harriett unt of debris within the stomach extending into the duodenum proximally. The liver, gallbladder, spleen, pancreas, adrenal glands, and kidneys are unremarkable. There are diverticula within the sigmoid colon with no evidence for diverticulitis. There is a suture line in the region of the cecum, which may be related to prior appendectomy althou gh this is uncertain. The appendix is not discretely visualized on this examination. The majority of the small bowel is distended and fluid filled. This may be related to developing sma ll bowel obstruction or a diffuse ileus. There is some debris seen within loops of dilated small bow el as well. The vascular structures of the abdomen/pelvis appear patent. There are no enlarged lymph nodes withi n the abdomen or pelvis. The osseous structures demonstrate no acute findings. IMPRESSION: 1. There are numerous dilated fluid and gas filled loops of small bowel seen throughout the abdomen/ pelvis, new when compared to the prior examination. These findings may signify developing small ross l obstruction or diffuse nonspecific ileus. The former is favored. No evidence for free intraperiton eal air or abscess. POS: [facility]
== END 2016-11-19 00:20 | disposition short-term general hospital (02) ==
LOC: MADERS 22:16
DX: K56.60 Unspecified intestinal obstruction (principal); Z86.73 Personal history of transient ischemic attack (TIA), and cerebral infarction without residual deficits; Z87.891 Personal history of nicotine dependence
CPT/HCPCS: 74177; 80053; 80306; 81003; 81015; 83605; 83690; 85025; 96361; 96374; J2405; J7050

== ENCOUNTER 2020-09-01 11:45 | Outpatient (CLI) | payer OTHER | END 2020-09-01 11:46 | disposition home or self-care (01) | LOC: MADRAD 11:45 | PROVIDERS: ATTEND Family Medicine | DX: M25.551 Pain in right hip (principal) ==